=== PATIENT | female | born 1980 | race African-American/Black ===

== ENCOUNTER 2017-02-01 04:04 | Inpatient (IN) ==
[2017-02-01] MEDS ORDERED: PANTOPRAZOLE 40 MG VIAL IV STA (05:06)
[2017-02-01] MEDS ORDERED: ONDANSETRON 4 MG/2 ML VIAL IV STA (05:06)
[2017-02-01] MEDS ORDERED: SODIUM CHLORIDE 0.9% 1,000 ML IV STA (05:06)
[2017-02-01] MEDS ORDERED: PANTOPRAZOLE 40 MG VIAL IV ONE (05:30)
[2017-02-01] MEDS ORDERED: ONDANSETRON 4 MG/2 ML VIAL ONE (05:30)
--- NOTE | 2017-02-01 05:56 | Emergency Department Note ---
IRoque Mantricia, am scribing for, and in the presence of, Aileen Alford DO 05:11. IPrashanth Debra, DO, personally performed the services described in this documentation, ascribed by Vonda Nevarez in my presence, and it is both accurate and complete [id number] . Arrival - Arrival ED Nursing Triage Note: Pt states that she started having pain in top of her abd. States that she vomited and it eased up. States that the pain feeling came back so she came to er. PT states last normal bm was today. Pt noted to have moist mucus membranes at time of triage, skin turgor elastic, and is in no acute distress. Mode of Arrival: Ambulatory Limitations: No Limitations Source: Patient - History of Present Illness Onset (ago): hour(s) Consistency: constant Severity: mild Date of Last Menstrual Period: 01/13/17 <Aileen Alford - Last Filed: 02/01/17 05:56> <Dawood Benites - Last Filed: 02/01/17 12:03> - Arrival Chief Complaint: Nausea/Vomiting/Diarrhea Stated Complaint: sob throwing up stomach pains fell hurt wrist Time Seen by Provider: 02/01/17 05:05 - History of Present Illness HPI Narrative: Pt is a 36 y/o black female arriving to ED with c/o N/V/D that onset yesterday. She reports that she also has been experiencing abdominal pain. After sleeping tonight, she woke up having to vomit. After vomiting, the pain was relieved for a while. Once the pain started again, pt came to ED. She reports that while driving to ED, she vomited 2 more times. She reports that she ate a hotdog for dinner yesterday. Pt denies possibly being . No other complaints were reported to ED. (Vonda Nevarez) Pt is a 36 y/o black female arriving to ED with c/o N/V/D that onset yesterday. She reports that she also has been experiencing abdominal pain. After sleeping tonight, she woke up having to vomit. After vomiting, the pain was relieved for a while. Once the pain started again, pt came to ED. She reports that while driving to ED, she vomited 2 more times. She reports that she ate a hotdog for dinner yesterday. Pt denies possibly being . No other complaints were reported to ED. (Aileen Alford) Allergies/Adverse Reactions: Allergies Allergy/AdvReac Type Severity Reaction Status Date / Time No Known Allergies Allergy Verified 10/31/14 17:01 Home Medications: Home Medications Medication Instructions Recorded Confirmed Type Hydrocodone/Acetaminophen [[place] 1 each PO Q6HR 02/01/17 02/01/17 History 10-325 Tablet] Losartan/Hydrochlorothiazide 1 each PO DAILY 02/01/17 02/01/17 History [Losartan-Hctz 50-12.5 mg Tab] Review of System - Review of System 12 point system: reviewed and no additional remarkable complaints except as stated - Review of System Constitutional: Absent: chills, diaphoresis Cardiovascular: Absent: chest pain Gastrointestinal: Present: abdominal pain, nausea, vomiting. Absent: diarrhea Musculoskeletal: Absent: arm pain, back pain, leg pain, neck pain <Aileen Alford - Last Filed: 02/01/17 05:56> Medical,Surgical,& Family Hx - Medical History Cardio: History of: Hypertension Musculoskeletal: History of: Back/Neck Problems Hematology: No history of: Blood Transfusion Reaction Reproductive: History of: Complication (Current twin gestation) No history of: Ectopic Other: No history of: Anesthesia Reactions - Surgical History Reproductive Surgeries: Surgical HX of;: Section - Family History Family History: Reports;: Family Diabetes (UNCLE), Family Hypertension (FATHER AND GRANDMOTHER AND GRANDFATHER) Denies;: Family Anesthesia Reaction, Family Cancer, Family Heart Disease, Family Psychiatric Problems, Family Stroke - Social History Smoking Status: Never smoker Frequency of Alcohol Use: Occasionally Type of Drug Use: None <Aileen Alford - Last Filed: 02/01/17 05:56> Exam - General General appearance: alert, in no apparent distress - Head Head exam: Present: atraumatic, normocephalic, normal inspection - Eye Eye exam: Present: normal appearance, PERRL, EOMI - ENT ENT exam: Present: normal exam, normal oropharynx, mucous membranes moist, TM's normal bilaterally, normal external ear exam - Neck Neck exam: Present: normal inspection, full ROM, trachea midline. Absent: tenderness - Chest Chest inspection: Present: normal inspection, symmetric chest wall rise. Absent : tenderness - Respiratory Respiratory exam: Present: normal lung sounds bilaterally - Cardiovascular Cardiovascular exam: Present: regular rate, normal rhythm, normal heart sounds - Abdominal Exam Abdominal exam: Present: soft, tenderness (epigastric), normal bowel sounds. Absent: distention, guarding, rebound - Extremities Exam Extremities exam: Present: normal inspection, full ROM, normal capillary refill. Absent: tenderness, pedal edema - Back Exam Back exam: Present: normal inspection, full ROM. Absent: tenderness - Neurological Exam Neurological exam: Present: alert, oriented X3, CN II-XII intact, normal gait, reflexes normal - Psychiatric Psychiatric exam: Present: normal affect, normal mood - Skin Skin exam: Present: warm, dry, intact, normal color <Aileen Alford - Last Filed: 02/01/17 05:56> Vital Signs: Vital Signs Temperature 98.4 F 02/01/17 04:46 Pulse Rate 74 02/01/17 09:15 Respiratory Rate 16 02/01/17 09:15 Blood Pressure 111/73 02/01/17 09:15 O2 Sat by Pulse Oximetry 100 02/01/17 09:15 Course <Aileen Alford - Last Filed: 02/01/17 05:56> <Dawood Benites - Last Filed: 02/01/17 12:03> Course Narrative: Patient's clinical presentation, laboratory and radiograph findings were discussed with Dr. Marvin. Patient will be admitted and GI consult for ERCP. (Dawood Benites) Results - Labs CBC & BMP: 02/01/17 05:54 02/01/17 05:54 Lab Results: I have reviewed the patients labs - Diagnostic Findings Procedure: Ultrasound: report reviewed by me (Evidence of choledocholithiasis is present.) <Dawood Benites - Last Filed: 02/01/17 12:03> Disposition <Aileen Alford - Last Filed: 02/01/17 05:56> Case discussed with: patient Time of Disposition: 12:03 <Dawood Benites - Last Filed: 02/01/17 12:03> Clinical Impression: Choledocholithiasis Disposition: Still a Patient Condition: Stable
[2017-02-01 06:21] LABS: Basophils % 0.2 % (0.0-0.8); Eosinophils # 0.1 10*3/uL (0.0-0.87); Eosinophils % 0.4 % (0.00-10.9); Hematocrit 41.8 VOL% (35.7-47.0); Hemoglobin 13.9 GM/DL (12.0-16.0); Immature Granulocytes % 0.5 %; Immature Granulocytes Absolute 0.06 #; Lymphocytes # 1.2 10*3/uL (1.4-4.0); Lymphocytes % 9.6 % (21.3-54.2); Mean Corpuscular HGB Conc 33.3 GM/DL (32-36); Mean Corpuscular Hemoglobin 30 PG (27-34); Mean Corpuscular Volume 89.5 FL (87-102); Mean Platelet Volume 11.4 FL (9.6-12.0); Neutrophils % 81.3 % (38.7-73.9); Platelet Count 319 T/CUMM (130-400); Red Blood Count 4.67 MC/CUMM (3.8-5.5); Red Cell Distribution Width 12.9 % (9.3-17.3); White Blood Count 12.3 T/CUMM (4-12)
[2017-02-01 06:31] LABS: Amorphous Crystals,Urine Occasional /HPF (Few); Apearance,Urine Slightly Hazy (Clear); Bilirubin,Urine Negative (Negative); Blood, Urine Negative (Negative); Glucose,Urine (UA) Negative (Negative); Ketones,Urine Negative (Negative); Mucus,Urine Occasional /LPF (Occasional); Nitrite,Urine Negative (Negative); Protein,Urine 30 MG/DL; RBC,Urine 2 /HPF (0-4); Squamous Epithelial Cell,Urine Occasional /HPF (0-10); Urine Color Amber (Yellow); Urine Specific Gravity 1.025 (1.001-1.035); WBC,Urine <1 /HPF (0-6)
[2017-02-01 06:48] LABS: Albumin 3.7 G/DL (3.4-5.0); Bilirubin,Total 1.2 MG/DL (0.2-1.0); Calcium 9.1 MG/DL (8.5-10.1); Osmolality,Calculated 274.5 MOS/KG (273-304); Potassium 3.8 MMOL/L (3.5-5.1)
--- NOTE | 2017-02-01 09:52 | Ultrasound Report ---
Right upper quadrant ultrasound Indication: Abdominal Pain, right side with elevated LFTs Findings: The liver is normal in size and echogenicity. The gallbladder has multiple mobile calculi. The gallbladder wall thickness is 2.2 mm . The common bile duct measures 9.0 mm. The visualized portion of the pancreas appear within normal limits The right kidney is normal in size and echogenicity and measures 12.1 cm . No free fluid or free air seen. Impression: Cholelithiasis with prominent common bile duct. No other evidence of abnormality demonstrated. Ultrasound images stored and captured. PROCEDURE INTERPRETED AT [facility] DEPARTMENT OF RADIOLOGY Final Report Signed by: Dr. Jamil Shah
[2017-02-01] MEDS ORDERED: ONDANSETRON 4 MG/2 ML VIAL IV PRN (12:03)
[2017-02-01] MEDS ORDERED: ACETAMINOPHEN 325 MG TABLET PO PRN (12:03)
[2017-02-01] MEDS: DEXTROSE 5% NACL 0.45% 1,000 ML IV SCH ×2 (15:30→21:19)
[2017-02-01] MEDS: PIPERACILLIN/TAZOBACTAM 3,375 MG in SODIUM CHLORIDE 0.9% 100 ML IV SCH ×2 (15:41→21:17)
[2017-02-01] MEDS: HYDROmorphone 2 MG/1 ML VIAL IV PRN ×2 (17:41→22:21)
[2017-02-02 05:19] LABS: Bilirubin,Total 1.5 MG/DL (0.2-1.0); Calcium 8.4 MG/DL (8.5-10.1); Osmolality,Calculated 278.3 MOS/KG (273-304); Potassium 3.6 MMOL/L (3.5-5.1); Total Protein 6.8 G/DL (6.4-8.3)
[2017-02-02] MEDS: DEXTROSE 5% NACL 0.45% 1,000 ML IV SCH ×3 (05:40→20:52)
[2017-02-02] MEDS: PIPERACILLIN/TAZOBACTAM 3,375 MG in SODIUM CHLORIDE 0.9% 100 ML IV SCH ×3 (05:40→20:51)
[2017-02-02] MEDS ORDERED: ENOXAPARIN 40 MG/0.4 ML SYRINGE SUBCUT SCH (06:07)
[2017-02-02] MEDS: HYDROmorphone 2 MG/1 ML VIAL IV PRN ×2 (08:31→14:31)
--- NOTE | 2017-02-02 09:03 | Gastrointestinal Consult Note ---
<Nette Adkins - Last Filed: 02/02/17 08:59> Assessment and Plan (1) Abdominal pain Status: Acute Assessment and plan: 02/02-sudden onset of right upper quadrant abdominal pain, postprandial, followed by nausea and vomiting. Findings on admission of elevated LFTs and cholelithiasis with dilated common bile duct at 9 mm. N.p.o. this morning. Plan to proceed with ERCP today to further evaluate. Further plan an addendum to followed by Dr. Lam. Current Visit: Yes History of Present Illness Chief complaint: Abdominal pain History of present illness: Ms. Masterson is a 36 year old female who was admitted to the hospital with onset of abdominal pain, nausea and vomiting. Patient states that she was in her usual state of health until Thursday afternoon around 4 PM when she had a sudden onset of right upper quadrant pain that followed not long after ingestion of a meal. She states the pain was in the right upper quadrant radiated across her abdomen into her back. Shortly after onset of pain she also had onset of nausea and vomiting. She states that she took a [place] pain p.o., which she takes for her chronic back pain. And the pain did ease up enough for her to continue her day however did not completely alleviate. She states that on Thursday, the pain came back just as severe and then she came to the emergency room for further evaluation. Patient states that she has never had pain like this in the past. Upon admission, patient had an ultrasound of her abdomen which showed gallbladder wall thickness, cholelithiasis, and a prominent bile duct at 9.0 mm. Patient was also found to have an elevation in her LFTs with bilirubin of 1.5, AST of 384, ALT 457, and alkaline phosphatase 190. Lipase is normal at 120. Patient was noted to have Lovenox ordered for this morning however this was not given by nursing staff. Discussed ultrasound findings with patient as well as proceeding with ERCP to further evaluate the findings of her cholelithiasis. Discussed procedure risk and benefits as well. JANELL Babb at bedside. Discussed findings with Dr. Lam and agreed to proceed with ERCP this morning. Home Medications Medication Instructions Recorded Confirmed Type Hydrocodone/Acetaminophen [[place] 1 each PO Q6HR 02/01/17 02/01/17 History 10-325 Tablet] Losartan/Hydrochlorothiazide 1 each PO DAILY 02/01/17 02/01/17 History [Losartan-Hctz 50-12.5 mg Tab] Allergies Allergy/AdvReac Type Severity Reaction Status Date / Time No Known Allergies Allergy Verified 10/31/14 17:01 Medical,Surgical,& Family Hx - Medical History Cardio: History of: Hypertension Rheumatology: No history of;: Fibromyalgia, Gout, Myasthenia Gravis, Rheumatoid Arthritis, Rheumatological Problems Musculoskeletal: History of: Back/Neck Problems (arthritis in lower back.) No history of: Amputation, Degenerative Disk Disease, Herniated Disk, Osteoporosis, Musculoskeletal Cancer, Musculoskeletal Problems Hematology: No history of: Blood Transfusion Reaction Reproductive: History of: Abnormal Pap Smear (1996. All since have been clear.) , Complication (Current twin gestation) No history of: Ectopic Other: No history of: Anesthesia Reactions - Surgical History Cardiac Surgeries: Patient Denies: Femoral-Popliteal Bypass Graft, Cardiac Catheterization, Cardiac Surgery, Carotid Endarterectomy, Internal Defibrillator, Vascular Access Devices Thoracic Surgeries: Patient denies;: Organ Transplant HEENT Surgeries: Patient denies: Carotid Endarterectomy, Eye Surgery, Tonsilectomy & Adenoidectomy Abdominal Surgeries: Patient denies: Splenectomy Reproductive Surgeries: Surgical HX of;: Section, Tubal Ligation Orthopedic Surgeries: Patient denies;: Implanted Devices, Orthopedic Surgery, Spinal Surgery, Total Hip Replacement, Total Knee Replacement - Family History Family History: Reports;: Family Diabetes (UNCLE), Family Hypertension (FATHER AND GRANDMOTHER AND GRANDFATHER) Denies;: Family Anesthesia Reaction, Family Cancer, Family Heart Disease, Family Psychiatric Problems, Family Stroke - Social History Smoking Status: Never smoker Frequency of Alcohol Use: Occasionally Type of Drug Use: None 12 point system: reviewed and no additional remarkable complaints except as stated - Constitutional Constitutional: Present: as per HPI - EENT Eyes: Present: as per HPI Ears: Present: as per HPI Nose, mouth and throat: Present: as per HPI - Cardiovascular Cardiovascular: Present: as per HPI - Respiratory Respiratory: Present: as per HPI - Gastrointestinal Gastrointestinal: Present: as per HPI, abdominal pain (Right upper quadrant), nausea, vomiting - Genitourinary Genitourinary: Present: as per HPI - Musculoskeletal Musculoskeletal: Present: as per HPI - Neurological Neurological: Present: as per HPI - Psychiatric Psychiatric: Present: as per HPI - Endocrine Endocrine: Present: as per HPI - Hematologic/Lymphatic Hematologic/Lymphatic: Present: as per HPI Exam - Constitutional Vitals: Period Temp Pulse Resp BP Sys/Calle Pulse Ox Last 24 Hr 97.3 F-99.4 F 67- 16-20 111-134/61-78 98-100 General appearance: normal weight, no acute distress - Head Head exam: Present: normal inspection, normocephalic - Eye Eye exam: Present: other (Lids and conjunctivae are unremarkable). Absent: scleral icterus - ENT ENT exam: Present: normal exam, normal oropharynx - Neck Neck exam: Present: normal inspection - Respiratory Respiratory exam: Present: clear to auscultation bilaterally. Absent: rales, rhonchi, wheezes - Cardiovascular Cardiovascular exam: Present: regular rate and rhythm. Absent: diastolic murmur , JVD, systolic murmur - GI/Abdominal GI/Abdominal exam: Present: normal bowel sounds, tenderness, soft. Absent: ascites, distended, mass, organomegaly - Extremities Exam Extremities exam: Present: normal inspection, full ROM - Back Exam Back exam: Present: normal inspection - Neurological Exam Neurological exam: Present: alert, oriented X3 - Psychiatric Psychiatric exam: Present: normal affect, normal mood - Skin Skin exam: Present: normal color, warm, dry Results - Labs CBC & BMP: 02/01/17 05:54 02/02/17 04:03 Lab Results: I have reviewed the past 24 hour labs - Diagnostic Findings Procedure: Ultrasound: report reviewed by me <Indra Lam - Last Filed: 02/02/17 12:55> History of Present Illness History of present illness: Ms. Masterson is a 36 year old female Exam - Constitutional Vitals: Period Temp Pulse Resp BP Sys/Calle Pulse Ox Last 24 Hr 97.3 F-99.4 F 67- 16-20 113-131/61-065 98-100 Results - Labs CBC & BMP: 02/01/17 05:54 02/02/17 04:03
[2017-02-02] MEDS: PANTOPRAZOLE 40 MG TABLET PO SCH ×2 (09:05→11:46)
[2017-02-02 09:45] LABS: PT Patient Result 10.7 SECS
--- NOTE | 2017-02-02 11:25 | General Surg History&Physical ---
Assessment and Plan - Time spent with patient Time spent with patient: Greater than 30 minutes (1) Nausea and vomiting Status: Acute Assessment and plan: Ms. Masterson is a pleasant 36-year-old -[place] female admitted with acute cholecystitis with cholelithiasis with elevated LFTs and normal lipase. Patient has been n.p.o. and started on IV fluids, pain and nausea control. Patient will undergo ERCP today by Dr. Lam. We will set her up for laparoscopic cholecystectomy in the morning if her labs are okay. Will restart her blood pressure medicines as well. Dr. Julian has seen and examined patient. Current Visit: Yes (2) Hypertension Status: Acute Current Visit: Yes (3) Choledocholithiasis Status: Acute Current Visit: Yes (4) Abdominal pain Status: Acute Current Visit: Yes History of Present Illness Chief complaint: Abdominal pain, nausea, vomiting History of present illness: Ms. Masterson is a 36 year old female with history of hypertension, tubal ligation, , and umbilical hernia repair admitted by Dr. Julian through the emergency room with abdominal pain, nausea, and vomiting. Patient states the pain started on Thursday acutely accompanied with nausea and vomiting. Patient states the pain was more right upper quadrant and epigastric region. She states she has never had this pain before. Patient states it was unrelenting and she came to the ED on Thursday. She was found to have elevated LFTs with normal lipase. Her gallbladder ultrasound showing cholelithiasis with prominent common bile duct and gallbladder wall thickening. There are multiple mobile calculi within the gallbladder. Upon exam patient does have tenderness in the epigastric and right upper quadrant with deep palpation. GI has been consulted and she will undergo ERCP today. Patient denies headache, dizziness, chest pain, shortness of breath, constipation or diarrhea, or lower extremity edema. Home Medications Medication Instructions Recorded Confirmed Type Hydrocodone/Acetaminophen [[place] 1 each PO Q6HR 02/01/17 02/01/17 History 10-325 Tablet] Losartan/Hydrochlorothiazide 1 each PO DAILY 02/01/17 02/01/17 History [Losartan-Hctz 50-12.5 mg Tab] Allergies Allergy/AdvReac Type Severity Reaction Status Date / Time No Known Allergies Allergy Verified 10/31/14 17:01 Medical,Surgical,& Family Hx - Medical History Cardio: History of: Hypertension Rheumatology: No history of;: Fibromyalgia, Gout, Myasthenia Gravis, Rheumatoid Arthritis, Rheumatological Problems Musculoskeletal: History of: Back/Neck Problems (arthritis in lower back.) No history of: Amputation, Degenerative Disk Disease, Herniated Disk, Osteoporosis, Musculoskeletal Cancer, Musculoskeletal Problems Hematology: No history of: Blood Transfusion Reaction Reproductive: History of: Abnormal Pap Smear (1996. All since have been clear.) , Complication (Current twin gestation) No history of: Ectopic Other: No history of: Anesthesia Reactions - Surgical History Cardiac Surgeries: Patient Denies: Femoral-Popliteal Bypass Graft, Cardiac Catheterization, Cardiac Surgery, Carotid Endarterectomy, Internal Defibrillator, Vascular Access Devices Thoracic Surgeries: Patient denies;: Organ Transplant HEENT Surgeries: Patient denies: Carotid Endarterectomy, Eye Surgery, Tonsilectomy & Adenoidectomy Abdominal Surgeries: Surgical HX of: Hernia Repair Patient denies: Splenectomy Reproductive Surgeries: Surgical HX of;: Section, Tubal Ligation Orthopedic Surgeries: Patient denies;: Implanted Devices, Orthopedic Surgery, Spinal Surgery, Total Hip Replacement, Total Knee Replacement - Family History Family History: Reports;: Family Diabetes (UNCLE), Family Hypertension (FATHER AND GRANDMOTHER AND GRANDFATHER) Denies;: Family Anesthesia Reaction, Family Cancer, Family Heart Disease, Family Psychiatric Problems, Family Stroke - Social History Smoking Status: Never smoker Frequency of Alcohol Use: Occasionally Type of Drug Use: None Lives With:: Alone Functional capacity: independent ambulation Exam - Constitutional Vitals: Period Temp Pulse Resp BP Sys/Calle Pulse Ox Last 24 Hr 97.3 F-99.4 F 67-83 16-20 113-134/61-78 98-100 Exam: Constitutional System: No distress. No tremulousness. Head: Normocephalic, atraumatic. Ears, Nose and Throat System: No evidence of Otitis or Mastoiditis. No epistaxis or discharge Eyes System: Pupils equal, round, and reactive. Extraocular muscles intact. Neck: Supple, without adenopathy, No jugular venous distention. No thyromegaly, neck mass, or prior surgery apparent. Respiratory System: Chest clear to auscultation. Cardiovascular System: Heart with regular rate and rhythm. No murmur. GI System: Abdomen soft, mildly tender in epigastric and right upper quadrant. Normo active bowel sounds present. Musculoskeletal System: limbs with no pedal edema. Full distal pulses. Neurological System: No discernable sensory deficit. No aphasia Psychiatric System: Conversation is rational Review of systems: A complete 10 system review of systems was obtained and pertinent positives and negatives per HPI Quality Measures - VTE Contraindication to Pharmacological VTE Prophylaxis: High Risk of Bleeding Results - Labs CBC & BMP: 02/01/17 05:54 02/02/17 04:03 Lab Results: I have reviewed the past 24 hour labs - Diagnostic Findings Procedure: Ultrasound: report reviewed by me (Ultrasound of the gallbladder shows cholelithiasis with prominent common bile duct and gallbladder wall thickening)
[2017-02-02] MEDS: LOSARTAN/HCTZ 50-12.5 MG TABLET PO SCH (11:46)
[2017-02-02] MEDS ORDERED: fentaNYL 100 MCG/2 ML VIAL ONE (12:36)
[2017-02-02] MEDS ORDERED: MIDAZOLAM 2 MG/2 ML VIAL ONE (12:36)
--- NOTE | 2017-02-02 12:59 | History and Physical Update ---
History and Physical Update - History and Physical H&P was reviewed, the patient examined and there: are no changes in the patients condition since last H&P was completed. - Physical Exam Mental Status: alert and oriented Heart: regular rate and rhythm Lung: clear to auscultation Abdomen: within normal limits Vitals: within normal limits
--- NOTE | 2017-02-02 13:26 | Operative Note ---
Date of procedure: 02/02/17 Pre-op diagnosis: Abdominal pain with gallstones, dilated common bile duct, and elevated live Procedure: Procedure: Endoscopic retrograde cholangiopancreatography with common bile duct sphincterotomy Brief clinical abstract: Patient is a 36-year-old female admitted with biliary type abdominal pain and found to have gallstones on ultrasound with also elevated liver tests. Her common bile duct was dilated to 9 mm. She has had no evidence of pancreatitis. Procedure findings: After informed consent was obtained, patient was placed in the prone position. Diagnostic video duodenoscope was inserted in the upper soft in blind fashion with no resistance encountered. Esophageal mucosa appeared normal. Stomach was examined including retroflexed view of the cardia and fundus with no abnormality seen. The pyloric channel, duodenal bulb, second and third portion of the duodenum appeared normal. The endoscope was withdrawn back to the ampulla which had normal appearance. Sphincterotome was used and initially cholangiogram obtained. Biliary tree was filled with contrast. Right and left intrahepatic systems were normal. Common bile duct and common hepatic duct were moderately dilated to approximately 10 mm diameter maximally. There was a questionable filling defect in the distal common bile duct which I was not sure if it was a stone or not. 0.035 inch guidewire was advanced into the right intrahepatic system. An approximately 1 cm common bile duct sphincterotomy was performed. Sphincterotome was withdrawn and occlusion balloon advanced over the wire to the proximal common hepatic duct. This was dragged distally 3 separate times over the wire into the duodenum with no stone or other abnormality seen. Repeat occlusion cholangiogram afterwards revealed no other abnormality. Distal pancreatic duct did opacify with no abnormality seen. I intentionally did not fill the remainder of the pancreatic duct. Cystic duct opacified with gallbladder partially filling and with cholelithiasis noted. There was excellent drainage of bile and contrast through the sphincterotomy opening afterwards. No bleeding was noted from the sphincterotomy site. Impression: #1 dilated common bile duct/common hepatic duct-probably due to recently passed common bile duct stone #2 status post common bile duct sphincterotomy-as described above #3 cholelithiasis #4 partial pancreatogram-distal pancreatic duct in head normal Recommendations: Cholecystectomy as planned. Anesthesia: MAC Surgeon / Physician: Indra Lam Estimated blood loss: none Specimens: none sent Condition: stable Disposition: post procedure unit Results - Labs CBC & BMP: 02/01/17 05:54 02/02/17 04:03 Discharge Plan - Discharge Medications No Action Hydrocodone/Acetaminophen [[place] 10-325 Tablet] 1 each PO Q6HR Losartan/Hydrochlorothiazide [Losartan-Hctz 50-12.5 mg Tab] 1 each PO DAILY - Follow Up or Referral - Forms/Instructions
--- NOTE | 2017-02-02 13:48 | Anesthesia Post-Op ---
Anesthesia Post OP - Post Ansesthetic Evaluation Patient seen in post op: Yes Resp: within normal limits CV: within normal limits Mental: within normal limits Temp: within normal limits [id number]: within normal limits Nausea and Vomiting: within normal limits Pain: within normal limits
--- NOTE | 2017-02-02 14:22 | EKG Report ---
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
--- NOTE | 2017-02-02 17:01 | Fluoroscopy Report ---
History: Elevated liver function tests. Dilated common bile duct Date: 02/02/2017 Study: ERCP with sphincterotomy Comparison exam: No previous similar 16 fluoroscopic images were captured and archived. Films document ERCP and sphincterotomy performed by Dr. Juwan Lam. 5 minutes 30 seconds fluoroscopy time was utilized. 40 mL Omnipaque 240 was injected. Films document dilatation of the common bile duct and common hepatic duct to a diameter of 10 mm. On early images, there was an equivocal small filling defect suggesting potential choledochal stone. Subsequent films document sphincterotomy and passage of balloon catheter with no residual stone. There is partial opacification of the distal pancreatic duct without obvious abnormality. There is reflux of contrast into the cystic duct with partial opacification of the gallbladder. Cholelithiasis is noted. Impression: Dilated common bile duct. No residual choledochal stone following sphincterotomy. Cholelithiasis. Normal partial pancreatogram PROCEDURE INTERPRETED AT [facility] DEPARTMENT OF RADIOLOGY Final Report Signed by: Dr. Catherine Lam
[2017-02-03 05:16] LABS: Basophils % 0.5 % (0.0-0.8); Eosinophils # 0.1 10*3/uL (0.0-0.87); Eosinophils % 1.8 % (0.00-10.9); Hematocrit 36.8 VOL% (35.7-47.0); Immature Granulocytes % 0.2 %; Immature Granulocytes Absolute 0.01 #; Lymphocytes # 1.8 10*3/uL (1.4-4.0); Lymphocytes % 31.5 % (21.3-54.2); Mean Corpuscular HGB Conc 32.6 GM/DL (32-36); Mean Corpuscular Hemoglobin 29 PG (27-34); Mean Corpuscular Volume 89.8 FL (87-102); Mean Platelet Volume 11.7 FL (9.6-12.0); Monocytes # 0.6 10*3/uL (0.11-0.8); Monocytes % 9.8 % (1.7-12.7); Neutrophils # 3.2 10*3/uL (1.4-7.4); Neutrophils % 56.2 % (38.7-73.9); Platelet Count 263 T/CUMM (130-400); Red Cell Distribution Width 13.1 % (9.3-17.3); White Blood Count 5.7 T/CUMM (4-12)
[2017-02-03] MEDS: PIPERACILLIN/TAZOBACTAM 3,375 MG in SODIUM CHLORIDE 0.9% 100 ML IV SCH ×3 (05:29→21:03)
[2017-02-03 05:49] LABS: Albumin 2.9 G/DL (3.4-5.0); Bilirubin,Total 1.1 MG/DL (0.2-1.0); Calcium 8.3 MG/DL (8.5-10.1); Osmolality,Calculated 272.7 MOS/KG (273-304); Potassium 3.7 MMOL/L (3.5-5.1); Total Protein 6.4 G/DL (6.4-8.3)
[2017-02-03] MEDS: DEXTROSE 5% NACL 0.45% 1,000 ML IV SCH ×4 (05:57→23:58)
[2017-02-03] MEDS ORDERED: LIDOCAINE 1%/EPI INJ 20 ML VIAL ONE (06:29)
[2017-02-03] MEDS ORDERED: BUPIVACAINE 0.25% /EPI 10 ML VIAL ONE ×2 (06:29→06:30)
[2017-02-03] MEDS ORDERED: TISSUE ADHESIVE 1 EACH APPLICATOR TOP ONE (07:37)
--- NOTE | 2017-02-03 08:04 | Operative Note ---
Date of procedure: 02/03/17 Pre-op diagnosis: Acute cholecystitis, choledocholithiasis status post ERCP Post-op diagnosis: same Procedure: Procedure performed: Laparoscopic cholecystectomy with intraoperative cholangiogram Procedure in detail: After informed consent was obtained, patient was taken operating suite lies upon the operating table. After general anesthesia was induced, the abdomen was prepped and draped in usual sterile fashion. After procedural pause local anesthetic and strength skin and subcutaneous tissue just above the umbilicus. Incision made and dissection carried down through skin and soft tissue. Fascia grasped with [place]'s and elevated. Fascial incision was made. Abdominal cavity was entered bluntly. Finger sweep revealed no adhesions. Chavarria trocar placed under direct visualization. Pneumoperitoneum achieved and the camera inserted. Bowel mesentery inspected found to be free of any violation. Patient was placed in reverse Trendelenburg position rotated to the left. 2 5 mm trochars were placed in the right upper quadrant 11 mm subxiphoid trocar was placed all under visualization. Gallbladder identified. It was decompressed but thickened and mildly edematous. It was grasped and elevated. Infundibulum the gallbladder retracted toward the right hip. Dissection carried out from lateral to medial approach and the triangle of [place]. Cystic duct and cystic artery were identified and isolated. Using a critical view technique these are the only 2 structures entering the gallbladder. Clip was placed the junction of the cystic duct neck of the gallbladder and partial transection made on the cystic duct. Cholangiocatheter inserted and secured in place. Intraoperative glandular and performed. Cystic duct common bile duct filled with no obvious filling defects identified and contrast was seen entering small bowel. Cholangiocatheter was removed and 2 clips placed on cystic duct just distal to the partial transection the transection completed. Cystic artery was triple clipped and transected how long the gallbladder wall. Gallbladder was removed from the gallbladder fossa using hook cautery and placed in Endo Catch sac. It was removed to the Chavarria trocar site. Pneumoperitoneum reachieved and right upper quadrant thoroughly irrigated and suctioned. There was excellent hemostasis. The clips inspected found to be intact no leakage of bilious or sanguinous fluid. Irrigant remained clear was all suctioned. Abdomen was desufflated as the trochars were removed. Fascia at the Chavarria trocar site closed using 0 Vicryl [id number] interrupted suture. Wounds were thoroughly irrigated and suctioned skin closed with keyur. Sterile dressings applied. Patient was extubated and taken recovery room in stable condition. All lap and needle counts correct at the end of the case. Anesthesia: GETA Surgeon / Physician: Ivan Julian Estimated blood loss: other (Less than 10 cc) Specimens: other (Gallbladder) Condition: stable Disposition: PACU Results - Labs CBC & BMP: 02/03/17 04:47 02/03/17 04:47 Discharge Plan - Discharge Medications No Action Hydrocodone/Acetaminophen [Velarde 10-325 Tablet] 1 each PO Q6HR Losartan/Hydrochlorothiazide [Losartan-Hctz 50-12.5 mg Tab] 1 each PO DAILY - Follow Up or Referral - Forms/Instructions
[2017-02-03] MEDS ORDERED: SEVOFLURANE 1 UNIT/15 MINUTE INH ONE (08:11)
[2017-02-03] MEDS ORDERED: KETOROLAC 30 MG/1 ML VIAL ONE (08:12)
[2017-02-03] MEDS ORDERED: fentaNYL 100 MCG/2 ML VIAL ONE (08:12)
[2017-02-03] MEDS ORDERED: ONDANSETRON 4 MG/2 ML VIAL ONE (08:12)
[2017-02-03] MEDS ORDERED: ACETAMINOPHEN 1,000 MG/100 ML VIAL IV ONE (08:12)
[2017-02-03] MEDS ORDERED: MIDAZOLAM 2 MG/2 ML VIAL ONE (08:12)
[2017-02-03] MEDS ORDERED: ONDANSETRON 4 MG/2 ML VIAL IV PRN (08:15)
[2017-02-03] MEDS ORDERED: HYDROmorphone 2 MG/1 ML VIAL IV PRN (08:15)
[2017-02-03] MEDS ORDERED: LACTATED RINGERS 1,000 ML IV SCH (08:30)
--- NOTE | 2017-02-03 09:14 | Anesthesia Post-Op ---
Anesthesia Post OP - Post Ansesthetic Evaluation Patient seen in post op: Yes Resp: within normal limits CV: within normal limits Mental: within normal limits Temp: within normal limits Cowb-[id number]-[id number]: within normal limits Nausea and Vomiting: within normal limits Pain: within normal limits
--- NOTE | 2017-02-03 09:38 | Gastrointestinal Progress Note ---
Assessment and Plan (1) Abdominal pain Status: Acute Assessment and plan: 02/03-Abd pain, mild postoperative tenderness. Cholangiogram findings without filling defects. LFTs trending down. Plan and addendum to follow by Dr Lam. 02/02-sudden onset of right upper quadrant abdominal pain, postprandial, followed by nausea and vomiting. Findings on admission of elevated LFTs and cholelithiasis with dilated common bile duct at 9 mm. N.p.o. this morning. Plan to proceed with ERCP today to further evaluate. Further plan an addendum to followed by Dr. Lam. Current Visit: Yes Gastroenterology - PN: Subj Interval history: CC: Abdominal pain Pt is seen awake and alert, immediate post recovery from cholecystectomy this morning. She is not complaining of anything other than mild soreness at this time. Cholangiogram noted to show no filling defects intraoperatively. LFTs are beginning to trend downward as well. She denies any nausea or vomiting. She is afebrile. Abdomen is soft, mild tenderness at surgical site. ROS: Denies SOB or chest pain Exam (Progress Note) - Constitutional Vitals: Period Temp Pulse Resp BP Sys/Calle Pulse Ox Last 24 Hr 97.2 F-98.5 F 60-101 16-22 102-138/54-065 95-100 General appearance: normal weight, no acute distress - Head Head exam: Present: normal inspection, normocephalic - Eye Eye exam: Present: other (lids and conjunctiva unremarkable). Absent: scleral icterus - ENT ENT exam: Present: normal exam, normal oropharynx - Neck Neck exam: Present: normal inspection - Respiratory Respiratory exam: Present: clear to auscultation bilaterally. Absent: rales, rhonchi, wheezes - Cardiovascular Cardiovascular exam: Present: regular rate and rhythm. Absent: diastolic murmur , JVD, systolic murmur - GI/Abdominal GI/Abdominal exam: Present: normal bowel sounds, tenderness, soft. Absent: ascites, distended, mass, organomegaly - Extremities Exam Extremities exam: Present: normal inspection, full ROM - Back Exam Back exam: Present: normal inspection - Neurological Exam Neurological exam: Present: alert, oriented X3 - Psychiatric Psychiatric exam: Present: normal affect, normal mood - Skin Skin exam: Present: normal color, warm, dry Results - Labs CBC & BMP: 02/03/17 04:47 02/03/17 04:47 Lab Results: I have reviewed the past 24 hour labs
--- NOTE | 2017-02-03 10:00 | Fluoroscopy Report ---
History: Patient with abdominal pain and gallstones undergoing cholecystectomy Date: 02/03/2017 Study: Intraoperative cholangiogram Comparison exam: ERCP 02/02/2017 Contrast material was injected into the biliary tree by Dr. Julian during cholecystectomy. 12.3 seconds fluoroscopy time was utilized. 32 images were captured and archived. There is no abnormal filling defect within the common bile duct or partially opacified hepatic ducts to suggest residual calculus. The cystic duct stump is unremarkable. There is contrast material in the second portion of duodenum compatible with patency of the common bile duct. Impression: Normal intraoperative cholangiogram in this patient undergoing cholecystectomy PROCEDURE INTERPRETED AT [facility] DEPARTMENT OF RADIOLOGY Final Report Signed by: Dr. Catherine Lam
[2017-02-03] MEDS: PANTOPRAZOLE 40 MG TABLET PO SCH (10:03)
[2017-02-03] MEDS: LOSARTAN/HCTZ 50-12.5 MG TABLET PO SCH (10:03)
[2017-02-03] MEDS: HYDROmorphone 2 MG/1 ML VIAL IV PRN ×3 (10:04→21:04)
[2017-02-03] MEDS ORDERED: LIDOCAINE 2% 5 ML VIAL ONE (12:55)
[2017-02-03] MEDS ORDERED: GLYCOPYRROLATE 0.4 MG/2 ML VIAL ONE (12:55)
[2017-02-04] MEDS: DEXTROSE 5% NACL 0.45% 1,000 ML IV SCH (06:46)
[2017-02-04] MEDS: PIPERACILLIN/TAZOBACTAM 3,375 MG in SODIUM CHLORIDE 0.9% 100 ML IV SCH (06:47)
[2017-02-04] MEDS: HYDROmorphone 2 MG/1 ML VIAL IV PRN ×2 (06:47→08:46)
[2017-02-04] MEDS: LOSARTAN/HCTZ 50-12.5 MG TABLET PO SCH (08:53)
[2017-02-04] MEDS: PANTOPRAZOLE 40 MG TABLET PO SCH (08:53)
--- NOTE | 2017-02-04 09:48 | Discharge Summary ---
Hospital Course - Hospital Course Hospital Course: Ms. Masterson is a very pleasant 36-year-old -[place] female was admitted by Dr. Julian on 02/01/2017 with acute cholecystitis with choledocholithiasis with elevated LFTs and normal lipase. She was made n.p.o. and started on IV fluids, pain and nausea control. Dr. Lam performed an ERCP with common bile duct sphincterotomy on 02/02/2017. He found a dilated common bile duct/ common hepatic duct probably due to recently passed common bile duct stone, cholelithiasis, and he performed a partial pancreatogram of the distal pancreatic duct which was normal. Patient had no signs of pancreatitis so she was taken to the operating room on 02/03/[address] Julian where he performed a laparoscopic cholecystectomy with intraoperative cholangiogram. He was able to cannulate the cystic duct, bile duct and filled with no obvious defects. Postoperatively she has done very well. Her labs are normal, she is tolerating a diet and she is ambulating in the room. Her abdomen is soft and appropriately tender and her incisions look good. Patient will be discharged home with a 2 week follow-up with Dr. Julian. Complete discharge instructions were given to the patient and family in the room. Care coordination, chart review, and completed discharge paperwork took approximately 33 minutes. - Time spent with patient Time with patient DS: Greater than 30 minutes Diagnosis - Discharge Diagnosis (1) Nausea and vomiting Status: Resolved (2) Hypertension Status: Chronic (3) Choledocholithiasis Status: Resolved (4) Abdominal pain Status: Resolved Specialty Discharge - Follow Up or Referrals Follow up with: Ivan Julian MD [Physician] - 02/18/17 9:45 am (2 weeks ) Discharge Plan - Discharge Data Disposition: Disch To Home/Self Care Condition at Discharge: Stable Discharge Diet: heart healthy Activity: no lifting Hygiene: may shower Driving: other (No driving if taking pain medications) Contact your physician if you experience:: fever over 101, Nausea/Vomiting Wound / Dressing Care Instructions: Okay to shower daily with mild soap and water, pat dry, okay to leave open to the air or cover as needed with Band-Aids - Discharge Medications Continue Hydrocodone/Acetaminophen [[place] 10-325 Tablet] 1 each PO Q6HR Losartan/Hydrochlorothiazide [Losartan-Hctz 50-12.5 mg Tab] 1 each PO DAILY - Follow Up or Referral Follow Up: Ivan Julian MD [Physician] - 02/18/17 9:45 am (2 weeks ) - Forms/Instructions Instructions: Laparoscopic Cholecystectomy (DC) Exam - Constitutional Vitals: Period Temp Pulse Resp BP Sys/Calle Pulse Ox Last 24 Hr 97.6 F-98.6 F 69-86 16-20 99-128/54-77 95-99 Exam: 36-year-old Afro-Lao female, no acute distress, alert oriented Chest clear CV regular rate and rhythm Abdomen soft, appropriately tender, incisions look good Extremities no edema DS: Provider Date of admission: 02/01/17 12:03 Primary care physician: Efrain Mario MD Attending physician on admission: Ivan Julian MD Consults: 02/01/17 12:03 Consult to Physician [CONS] Routine Comment: Consulting Provider: Indra Lam Consulting Provider Notified: Yes When should Consulting Provider be notified: Now Person Notified: hao called Date Notified: 02/02/17 Time Notified: 08:35 02/02/17 11:21 Consult to Anesthesiology [CONS] Routine Consulting Provider: Reason for Anesthesiology: Pre-op Clearance Discharging clinician: JANELL Ferraro Expected date of discharge: 02/04/17
[2017-02-04 10:56] VITALS: BP 139/76
--- NOTE | 2017-02-04 11:18 | Pathology Report from [facility] ---
[facility] [place] : [id number] PATIENT NAME : Mireya Paz ORDERING DR : Ivan Julian MD CLINICAL HX: Choledocholithiasis POST-OP DX: Same SPECIMEN INFO: Gallbladder GROSS DESCRIPTION: The specimen is received in formalin labeled MIREYA PAZ consists of an intact gallbladder measuring 9.5 x 3.0 cm. The serosa is smooth and yellow-fox. The gallbladder has an average thickness of 0.3 cm. The mucosal surface is velvety and donahue. The lumen is filled with yellow bile with three yellow-brown stones noted measuring up to 2.0 cm. Ops Analyst sections submitted in one cassette. DIAGNOSIS FOR MIREYA PAZ: GALLBLADDER, CHOLECYSTECTOMY: Acute and chronic cholecystitis; cholelithiasis. COLLECTED DATE: 02/03/2017 [facility] [place] DATE: 02/04/2017 ELECTRONICALLY SIGNED BY: Chrissy Powell M.D. 02/04/2017 - 10:21:46 MTDD
== END 2017-02-04 14:36 | disposition home or self-care (01) | DRG 263 ==
LOC: N.ED 04:04 → N.EDINP 12:03 → N.3E 14:35
PROVIDERS: ADMIT Surgery; ATTEND Surgery
PROC: ERCPWSP (ICD-10-PCS; 2017-02-02 12:20)
PROC: LAPCHOL (2017-02-03 06:57)